=== PATIENT | male | born 1945 | race Caucasian/White ===

== ENCOUNTER → 2020-06-15 09:18 | Outpatient (CLI) | payer BC, SELFPAY ==
[2020-06-15 11:15] LABS: Coronavirus 19 IgG Antibody Negative (Negative); Coronavirus 19 IgM Antibody Negative (Negative)
== END ==
PROVIDERS: Visit Provider Internal Medicine Gastroenterology
DX: Z01.812 Encounter for preprocedural laboratory examination (principal); Z11.52 Encounter for screening for COVID-19; Z13.810 Encounter for screening for upper gastrointestinal disorder
CPT/HCPCS: 36415; 86328

== ENCOUNTER 2020-06-17 10:45 | Day surgery (SDC) | payer MEDICARE, SELFPAY ==
[2020-06-14 16:49] VITALS: BMI 24.7
[2020-06-17 11:34] VITALS: BP 170/89; PULSE 73; RESP 18; TEMP 36.2; O2SAT 98
[2020-06-17 12:04] VITALS: O2SAT 97
--- NOTE | 2020-06-17 12:05 | P.PN_ITS ---
[facility] Anesthesia Checklist - Patient Identification Patient Identification: Arm Band - Structural Data Admitted From: Home Planned Operative Procedure/s: egd Consent for Planned Operative Procedure(s) Verified: Yes Verified Documents: Surgical Consent, History and Physical - NPO Status Verified Time NPO: 00:00 - Additional verifications Anesthesia Reactions: No - Airway Assessment C-Spine Mobility Assessed: Yes (mp2) TMJ Mobility Assessed: Yes Dentition: Good Dentition - Neurological Assessment Level of Consciousness: Awake, Alert - Anesthesia Plan Anesthesia Risk discussed: Yes Anesthesia Plan: Verified ASA Class: III Anesthesia Type: MAC [facility] History I have reviewed the patient's past medical history: Yes Medical History: Reports:: Aneurysm (aortic), Hypertension Denies:: Cancer, Diabetes Mellitus Type 1, Diabetes Mellitus Type 2, Internal Pacemaker, MRSA, Seizures *Have you ever received a pneumonia vaccine?: No *Have you received a flu vaccine this season?: Yes Anesthesia experience/problems:: nac Other Surgeries: Yes: Colonoscopy, Other. No: Pacemaker Amputation: No Fractures: No - *Social History Last grade of school completed: Advanced degree Smoking Status: Never smoker Alcohol Intake: never Substance Use Type: denies use *Occupational Status:: employed Housing: house Household Members: spouse *Travel in the last 8 weeks: None Family Hx:: No significant family history
--- NOTE | 2020-06-17 12:22 | HMH.PROC ---
[facility] Procedure Note Procedure Note:: Upper Endoscopy Procedure Report: Esophagogastroduodenoscopy with cold biopsies Endoscopost: Alexander Gusman II, MD Referring Physician: Talha Kaur MD/John Christian MD Date of Procedure: June 17, 2020 Equipment: Olympus GIF 180 standard upper endoscope Sedation: MAC sedation Indications: Mr. Muhammad is a 75-year-old gentleman with recurrent small bowel obstruction. The patient did present again recently on Tricia (June 06, 2020) to [facility] and was admitted. He has had several episodes of recurrent small bowel obstruction of unknown etiology that date back 6 years. The patient had been seen by Dr. Rose and Dr. Fagan (at [facility]) and more recently by Dr. Talha Kaur (colorectal surgery [place]). The patient did have a CT scan of the abdomen and pelvis on 06/06 did show high-grade mid/distal small bowel obstruction secondary to a stricture. The patient did have a colonoscopy with Dr. Gabriele Wilde MD and July 2011 which showed some melanosis coli but was otherwise normal. The patient reports no rectal bleeding, melena, hematochezia or weight loss. He does have rapid resolution of the small bowel obstruction and now is passing gas and bowel movements normally. The patient did have abdominal aortic aneurysm repair (Dr. Phi López) 3 to 5 years ago but this was certainly after his initial bouts of small bowel obstruction. Procedure: Prior to the procedure, a history and physical exam was performed, and patient's medications and allergies were reviewed. The risks, benefits and alternatives of the sedation and procedure were discussed with the patient. All questions were answered and informed consent was obtained. The patient was brought to the procedure room. Patient identification and proposed procedure were verified by the physician and the nurse. The patient was placed in a left lateral decubitus position and the scope was passed under direct vision. Throughout the procedure, the patient's blood pressure, pulse, and oxygen saturations were monitored continuously. The upper GI endoscopy was accomplished without difficulty. The patient tolerated the procedure well. Findings: The scope was passed directly into the upper esophagus and advanced to the third portion of the duodenum. The post bulbar duodenum and duodenal bulb were normal with normal mucosa and conniventes. Cold biopsies were taken from the duodenum to rule out celiac disease. The scope was withdrawn through a normal duodenal bulb and pylorus into the stomach. There was mild reactive gastropathy of the antrum. There were fundic gland polyps in the body and fundus of the stomach. The remainder of the antrum, body and fundus of the stomach were grossly normal. Upon retroflexion there was a small 1 to 2 cm hiatal hernia. 2 biopsies were taken in the antrum and along the lesser curvature for histology to rule out gastritis and/or H pylori. One of the fundic gland polyps was removed via cold biopsy. The scope was then withdrawn into the esophagus. There was a serrated Z-line and a cold biopsy was taken at the GE junction. There was no evidence of reflux esophagitis, Schatzki's ring or Lal's. The remainder of the esophageal mucosa was normal. Impression: 1. Nonerosive GERD 2. Gastric fundic gland polyps 3. Mild linear reactive gastropathy Plan: There was certainly no upper digestive tract findings that would relate to his symptoms or small bowel obstruction. I do feel that this is mid/distal small bowel and probably beyond the reach of colonoscopy. I would agree with enterography or double contrast small bowel series. I do feel that he is a good candidate for surgical exploration and repair since he has had multiple unexplained bouts of PSBO.
[2020-06-17 12:24] VITALS: BP 100/62; PULSE 62; RESP 12; TEMP 36.6; O2SAT 96
[2020-06-17 12:34] VITALS: BP 114/80; PULSE 68; RESP 16; O2SAT 98
[2020-06-17 12:44] VITALS: BP 122/77; PULSE 62; RESP 16; O2SAT 98
[2020-06-17 12:54] VITALS: BP 122/77; PULSE 57; RESP 16; TEMP 36.4; O2SAT 98
== END 2020-06-17 13:09 | disposition home or self-care (01) ==
LOC: OUTP 10:48
PROVIDERS: PCP Internal Medicine; Visit Provider Internal Medicine Gastroenterology
PROC: 0DJ08ZZ Inspection of Upper Intestinal Tract, Via Natural or Artificial Opening Endoscopic (ICD-10-PCS; CPT 43235; principal; 2020-06-17 12:00)
DX: K21.9 Gastro-esophageal reflux disease without esophagitis (principal); K31.7 Polyp of stomach and duodenum; K31.9 Disease of stomach and duodenum, unspecified; Z87.19 Personal history of other diseases of the digestive system; Z86.79 Personal history of other diseases of the circulatory system; I10 Essential (primary) hypertension; Z79.899 Other long term (current) drug therapy
CPT/HCPCS: 43239; 88305